=== PATIENT | male | born 1995 | race Hispanic/Latino ===

== ENCOUNTER 2018-12-07 23:19 | Emergency (ER) | payer OTHER ==
[2018-12-07] MEDS ORDERED: ACETAMINOPHEN EXTRA STRENGTH 500 MG TABLET ONE (23:50)
[2018-12-08 00:16] LABS: RAPID GROUP A STREP NEGATIVE (NEGATIVE)
[2018-12-08] MEDS ORDERED: AZITHROMYCIN 250 MG TABLET PO ONE (01:00)
== END 2018-12-08 01:18 | disposition home or self-care (01) ==
LOC: EDH 23:19
DX: J18.1 Lobar pneumonia, unspecified organism (principal)
CPT/HCPCS: 71046; 87804; 87880